=== PATIENT | female | born 1990 | race African-American/Black ===

== ENCOUNTER 2017-03-23 17:23 | Emergency (ER) | payer SELFPAY ==
[~2017-03-23] VITALS: Ht 165.1 cm; Wt 81.0 kg
[2017-03-23 17:44] VITALS: BP 122/78
== END 2017-03-23 18:04 | disposition home or self-care (01) ==
LOC: ED 17:58
DX: S50.861A Insect bite (nonvenomous) of right forearm, initial encounter (principal); W57.XXXA Bitten or stung by nonvenomous insect and other nonvenomous arthropods, initial encounter; Y93.89 Activity, other specified; Y92.89 Other specified places as the place of occurrence of the external cause; Y99.8 Other external cause status
CPT/HCPCS: 99281